=== PATIENT | female | born 1950 | race Caucasian/White ===

== ENCOUNTER 2019-05-21 07:56 | Outpatient (CLI) | payer MEDICARE ==
--- NOTE | 2019-05-21 10:03 | RAD ---
PA AND LATERAL CHEST: Date: 05/21/19 INDICATION: Dyspnea. COMPARISON: None. FINDINGS: There is moderate COPD change. Heart size is upper limits of normal. No acute osseous abnormality is evident. IMPRESSION: No acute cardiopulmonary abnormality. POS: TPC
== END 2019-05-21 07:57 | disposition home or self-care (01) ==
LOC: RAD 07:56
PROVIDERS: ATTEND Internal Medicine Critical Care Medicine
DX: R06.00 Dyspnea, unspecified (principal)
CPT/HCPCS: 71046

== ENCOUNTER 2019-06-18 06:57 | Outpatient (CLI) | payer MEDICARE ==
--- NOTE | 2019-06-21 09:46 | PFT ---
PATIENT HISTORY: HEIGHT: 65 in WEIGHT: 239 SMOKER: yes HOW LON yrs PACKS PER DAY: 1 PRODUCTIVE COUGH: [ LUNG DISEASE: PHYSICIAN INTERPRETATION FINAL REPORT: PFT data: FVC 2.71 (88%), FEV1 1.98 (84%), FEV1/FVC 0.73. RV 2.03 (101%), TLC 4.89 (96%). DIFFUSION 13.20 (59%) The FEV1 and FVC fall comfortably with in the normal limits. The ratio is normal , suggesting no evidence of obstructive air flow limitation. The flow-volume loops including the expiratory and inspiratory limbs are normal. Lung Volumes are normal. Diffusion capacity is moderately impaired. IMPRESSION: Overall, these pulmonary function studies are most consistent with an isolated reduced diffusion capacity without any improvement following administration of bronchodilator. Pulmonary vascular disorders should be considered. Ergonomic Specialist: NEGAR Echo Vascular Tech: NEGAR ZACARIAS
== END 2019-06-18 06:58 | disposition home or self-care (01) ==
LOC: CP 06:57
PROVIDERS: ATTEND Internal Medicine Critical Care Medicine
DX: J44.9 Chronic obstructive pulmonary disease, unspecified (principal)
CPT/HCPCS: 94060; 94727; 94729